=== PATIENT | female | born 1940 | race Caucasian/White ===

== ENCOUNTER 2018-05-28 02:05 | Outpatient (CLI) | payer MEDICARE, BC, SELFPAY ==
[2018-05-28 13:24] LABS: Hemoglobin A1C 6.9 % (4.5-6.2)
== END 2018-05-28 02:25 ==
PROVIDERS: PCP Family Medicine; Visit Provider Family Medicine
DX: E11.9 Type 2 diabetes mellitus without complications (principal)
CPT/HCPCS: 36415; 83036

== ENCOUNTER 2018-09-04 01:25 | Outpatient (CLI) | payer MEDICARE, BC, SELFPAY ==
[2018-09-04 13:55] LABS: Hemoglobin A1C 7.5 % (4.5-6.2)
== END 2018-09-04 01:45 ==
PROVIDERS: PCP Family Medicine; Visit Provider Family Medicine
DX: E11.9 Type 2 diabetes mellitus without complications (principal)
CPT/HCPCS: 36415; 83036

== ENCOUNTER 2018-10-29 02:48 | Outpatient (CLI) | payer MEDICARE, BC, SELFPAY ==
[2018-10-29 11:02] LABS: Hemoglobin A1C 7.7 % (4.5-6.2)
== END 2018-10-29 03:08 ==
PROVIDERS: PCP Family Medicine; Visit Provider Family Medicine
DX: E11.9 Type 2 diabetes mellitus without complications (principal)
CPT/HCPCS: 36415; 83036

== ENCOUNTER 2019-10-29 03:01 | Outpatient (CLI) | payer MEDICARE, BC, SELFPAY ==
[2019-10-29 13:25] LABS: ALT 21 U/L (14-59); AST 20 U/L (15-37); Albumin 3.8 g/dL (3.4-5.0); Alkaline Phosphatase 72 U/L (46-116); Anion Gap 11.1 mmol/L (3-11); BUN 33 mg/dL (7-18); Bilirubin, Total 0.7 mg/dL (0.2-1.0); CO2 25.9 mmol/L (21.0-32.0); CREATININE 1.02 mg/dL (0.55-1.02); Calcium 8.8 mg/dL (8.5-10.1); Calculated LDL 114 mg/dL (<100); Chloride 104 mmol/L (98-107); Cholesterol 197 mg/dL (<200); Estimated GFR 52.28 (mL/min/1.73m2); Glucose 73 mg/dL (74-106); HDL Cholesterol 75 mg/dL (40-60); Potassium 4.8 mmol/L (3.5-5.1); Sodium 141 mmol/L (136-145); Triglyceride 43 mg/dL (<150)
[2019-10-29 13:36] LABS: Hemoglobin A1C 7.2 % (3.8-5.6)
[2019-10-29 13:54] LABS: COMMENT (LAB VIEW ONLY) 94.49 mg/dL; Microalb ug/mg Crea 13.8 ug/mg Cr
== END 2019-10-29 03:21 ==
PROVIDERS: PCP Family Medicine; Visit Provider Family Medicine
DX: I10 Essential (primary) hypertension (principal); E11.9 Type 2 diabetes mellitus without complications; E78.5 Hyperlipidemia, unspecified
CPT/HCPCS: 36415; 80053; 80061; 82043; 82570; 83036

== ENCOUNTER 2020-05-06 04:30 | Outpatient (CLI) | payer MEDICARE, BC, SELFPAY ==
--- NOTE | 2020-05-06 13:15 | DI.RAD_ITS ---
EXAM: XR HIP PELVIS ADULT BL CLINICAL HISTORY: hip pain - bilateral M25.559 PAIN IN LEG, M54.5 LBP. TECHNIQUE: 2D digital imaging was performed. COMPARISON: No exams were available for comparison FINDINGS: BONES: No acute fracture is present. No bony destructive lesion is seen. Mild enthesophytes at the il iac wings and greater trochanters. JOINTS: No dislocation present. Mild periarticular spurring, right greater than left. SOFT TISSUE: Faint vascular calcifications. IMPRESSION: Mild degenerative changes. DATA REPOSITORY: RADIATION DOSE DELIVERED:
--- NOTE | 2020-05-06 14:09 | DI.RAD_ITS ---
EXAM: XR LUMBAR SPINE COMPLETE CLINICAL HISTORY: LBP M54.5. TECHNIQUE: 2D digital imaging was performed. COMPARISON: No exams were available for comparison FINDINGS: There are 5 lumbar type vertebral bodies. The vertebral bodies are well maintained in height. The l ateral views are suboptimally positioned, with rotation. The L4-5 and L5-S1 disc spaces are not well profiled. There may be mild disc space narrowing at these levels. There are small endplate osteoph ytes. There is no significant scoliosis. Facet degenerative changes are noted at L 5 S1. Calcifica tion is seen in the aorta which appears normal in diameter. IMPRESSION: Degenerative changes greatest at L4-5 and L5-S1. DATA REPOSITORY: RADIATION DOSE DELIVERED:
== END 2020-05-06 04:50 ==
PROVIDERS: PCP Family Medicine; Visit Provider Family Medicine
DX: M47.816 Spondylosis without myelopathy or radiculopathy, lumbar region (principal)
CPT/HCPCS: 73521; 72110

== ENCOUNTER 2021-03-21 03:25 | Outpatient (CLI) | payer MEDICARE, BC, SELFPAY ==
[2021-03-21 12:38] LABS: Hemoglobin A1C 7.2 % (<5.7)
[2021-03-21 12:42] LABS: ALT 21 U/L (14-59); AST 24 U/L (15-37); Albumin 3.9 g/dL (3.4-5.0); Alkaline Phosphatase 71 U/L (46-116); Anion Gap 8.6 mmol/L (3-11); BUN 29 mg/dL (7-18); Bilirubin, Total 0.7 mg/dL (0.2-1.0); CO2 27.4 mmol/L (21.0-32.0); Calcium 9.2 mg/dL (8.5-10.1); Calculated LDL 102 mg/dL (<100); Chloride 107 mmol/L (98-107); Cholesterol 191 mg/dL (<200); Estimated GFR 53.35 (mL/min/1.73m2); Glucose 87 mg/dL (74-106); HDL Cholesterol 80 mg/dL (40-60); Potassium 4.6 mmol/L (3.5-5.1); Sodium 143 mmol/L (136-145); Total Protein 6.9 g/dL (6.4-8.2); Triglyceride 49 mg/dL (<150)
== END 2021-03-21 03:26 | disposition home or self-care (01) ==
LOC: LOS 03:26
PROVIDERS: PCP Family Medicine; Visit Provider Family Medicine
DX: E11.9 Type 2 diabetes mellitus without complications (principal); I10 Essential (primary) hypertension; E78.5 Hyperlipidemia, unspecified
CPT/HCPCS: 36415; 80053; 80061; 83036

== ENCOUNTER 2022-08-03 01:22 | Outpatient (CLI) | payer MEDICARE, BC, SELFPAY ==
[2022-08-03 13:11] LABS: Hemoglobin A1C 6.9 % (<5.7)
[2022-08-03 13:15] LABS: ALT 18 U/L (14-59); AST 26 U/L (15-37); Albumin 3.7 g/dL (3.4-5.0); Alkaline Phosphatase 83 U/L (46-116); Anion Gap 9.2 mmol/L (3-11); BUN 29 mg/dL (7-18); Bilirubin, Total 0.8 mg/dL (0.2-1.0); CO2 24.8 mmol/L (21.0-32.0); Calcium 8.9 mg/dL (8.5-10.1); Chloride 103 mmol/L (98-107); Estimated GFR 56.25 (mL/min/1.73m2); Glucose 99 mg/dL (74-106); Potassium 4.5 mmol/L (3.5-5.1); Sodium 137 mmol/L (136-145); Total Protein 7.3 g/dL (6.4-8.2)
[2022-08-03 13:31] LABS: Calculated LDL 96 mg/dL (<100); Cholesterol 185 mg/dL (<200); HDL Cholesterol 77 mg/dL (40-60); Triglyceride 62 mg/dL (<150)
== END 2022-08-03 01:23 | disposition home or self-care (01) ==
LOC: LOS 01:22
PROVIDERS: PCP Family Medicine; Visit Provider Family Medicine
DX: E11.9 Type 2 diabetes mellitus without complications (principal); E78.5 Hyperlipidemia, unspecified; I10 Essential (primary) hypertension
CPT/HCPCS: 36415; 80053; 80061; 83036

== ENCOUNTER 2023-06-03 15:56 | Outpatient (REF) | payer MEDICARE, BC, SELFPAY ==
[2023-06-03 20:54] LABS: Abs Immature Grans 0.01 10^3/uL (0.0-0.06); Absolute Basophil Count 0.05 10^3/uL (0.0-0.2); Absolute Eosinophil Count 0.08 10^3/uL (0.0-0.7); Absolute Lymphocyte Count 1.22 10^3/uL (1.2-3.4); Absolute Monocyte Count 0.46 10^3/uL (0.1-0.8); Absolute Neutrophil Count 3.06 10^3/uL (1.2-6.7); Eosinophils % 1.6; HCT 34.3 % (36.0-46.0); HGB 11.5 g/dL (11.2-15.7); Immature Grans % 0.2; MCH 30.7 pg (27.0-33.0); MCHC 33.5 % (32.0-36.0); MCV 92 fL (80-95); MPV 9.8 fL (8.0-11.0); Monocytes % 9.4; Neutrophils % 62.8; Platelet Count 331 10^3/uL (130-400); RBC 3.75 10^6/uL (3.93-5.22); RDW 11.9 % (11.7-14.6); RDW-SD 39.6 fL; WBC 4.88 10^3/uL (4.4-10.8)
[2023-06-03 21:00] LABS: Anion Gap 10.8 mmol/L (3-11); BUN 31 mg/dL (7-18); CO2 23.2 mmol/L (21.0-32.0); CREATININE 1.1 mg/dL (0.55-1.02); Calcium 8.9 mg/dL (8.5-10.1); Chloride 102 mmol/L (98-107); Estimated GFR 50.17 (mL/min/1.73m2); Glucose 107 mg/dL (74-106); Magnesium 1.8 mg/dL (1.8-2.4); Potassium 4.1 mmol/L (3.5-5.1); Sodium 136 mmol/L (136-145)
== END 2023-06-03 15:57 | disposition home or self-care (01) ==
LOC: LBN 15:56
PROVIDERS: PCP Family Medicine; Visit Provider Physician Assistant
DX: R19.7 Diarrhea, unspecified (principal)
CPT/HCPCS: 80048; 83735; 85025

== ENCOUNTER 2023-06-04 10:20 | Outpatient (REF) | payer MEDICARE, BC, SELFPAY ==
[2023-06-04 14:21] LABS: C Diff PCR Negative (Negative)
[2023-06-05 13:29] LABS: Campylobacter PCR Negative (Negative); Salmonella PCR Negative (Negative); Shiga Toxin PCR Negative (Negative); Shigella/Enteroinvasive Ecoli Negative (Negative)
== END 2023-06-04 10:21 | disposition home or self-care (01) ==
LOC: LBN 10:20
PROVIDERS: PCP Family Medicine; Visit Provider Physician Assistant
DX: R19.7 Diarrhea, unspecified (principal)
CPT/HCPCS: 87329; 87493; 87505; 87177

== ENCOUNTER 2023-09-05 15:06 | Outpatient (REF) | payer MEDICARE, BC, SELFPAY ==
[2023-09-05 22:15] LABS: COMMENT (LAB VIEW ONLY) 107.78 mg/dL; Microalb ug/mg Crea 23.8 ug/mg Cr
== END 2023-09-05 15:07 | disposition home or self-care (01) ==
LOC: LBN 15:06
PROVIDERS: PCP Family Medicine; Visit Provider Family Medicine
DX: E11.9 Type 2 diabetes mellitus without complications (principal)
CPT/HCPCS: 82043; 82570

== ENCOUNTER 2025-04-05 16:59 | Outpatient (REF) | payer MEDICARE, BC, SELFPAY ==
[2025-04-05 21:50] LABS: COMMENT (LAB VIEW ONLY) 22.20 mg/dL; Microalb ug/mg Crea 40.1 ug/mg Cr
== END 2025-04-05 17:00 | disposition home or self-care (01) ==
LOC: LBN 16:59
PROVIDERS: PCP Family Medicine; Visit Provider Family Medicine
DX: E11.9 Type 2 diabetes mellitus without complications (principal)
CPT/HCPCS: 82043; 82570